=== PATIENT | female | born 1970 | race African-American/Black ===

== ENCOUNTER 2016-10-18 16:19 | Emergency (ER) | payer MEDICAID ==
[~2016-10-18] VITALS: Ht 167.6 cm; Wt 162.0 kg
[~2016-10-18 16:19] MED LIST: HCTZ PO; LISINOPRIL PO; VICODIN; WARF5TAB76 PO
[2016-10-18] MEDS ORDERED: ONDANSETRON HCL 4MG/2ML VIAL IV STA (17:31)
[2016-10-18] MEDS ORDERED: SODIUM CHLORIDE 0.9% 1,000 ML IV ONE (17:31)
[2016-10-18 18:23] LABS: BASOPHILS % 0.3 % (0.0-2.0); HEMOGLOBIN. 13.5 g/dL (12.0-16.0); LYMPHOCYTES % 12.5 % (20.0-50.0); MEAN CORPUSCULAR HEMOGLOBIN 27.6 pg (28.0-32.0); MEAN CORPUSCULAR VOLUME 81.7 fL (81.0-99.0); MEAN PLATELET VOLUME 8.3 fl (7.4-10.4); MONOCYTES % 3.2 % (2.0-8.0); PLATELET 180 x1000/uL (130-400); RED CELL DISTRIBUTION WIDTH 17.6 % (11.6-14.6)
[2016-10-18 18:27] LABS: CLARITY URINE TURBID (CLEAR); COLOR URINE YELLOW (YELLOW); GLUCOSE URINE NEGATIVE (NEGATIVE); KETONES URINE NEGATIVE (NEGATIVE); LEUKOCYTE ESTERASE URINE 3+ (NEGATIVE); NITRITE URINE NEGATIVE (NEGATIVE); OCCULT BLOOD URINE 3+ (NEGATIVE); PROTEIN URINE 2+ (NEGATIVE); SPECIFIC GRAVITY URINE 1.013 (1.005-1.030); UROBILINOGEN URINE 0.2 E.U./dL (0.2-1.0)
[2016-10-18 18:38] LABS: CARBON DIOXIDE 32 mEq/L (21-32); CHLORIDE 101 mEq/L (98-107)
[2016-10-18 18:54] LABS: *AMPHETAMINES SCREEN URINE NEGATIVE (NEGATIVE); *BARBITURATES SCREEN URINE NEGATIVE (NEGATIVE); *BENZODIAZEPINES SCREEN URINE NEGATIVE (NEGATIVE); *COCAINE SCREEN URINE NEGATIVE (NEGATIVE); METHADONE URINE SCREEN NEGATIVE (NEGATIVE); OPIATES URINE SCREEN NEGATIVE (NEGATIVE); PHENCYCLIDINE URINE SCREEN NEGATIVE (NEGATIVE)
[2016-10-18 18:56] LABS: CANNABINOID URINE SCREEN PRESUMTIVE POSITIVE (NEGATIVE)
[2016-10-18] MEDS ORDERED: KETOROLAC 30MG/ML VIAL IV ONE (19:30)
[2016-10-18] MEDS ORDERED: TRAMADOL 50MG TABLET PO ONE (19:30)
[2016-10-18] MEDS ORDERED: LEVOFLOXACIN 750MG PREMIX 150 ML IV ONE (19:45)
[2016-10-18 21:37] VITALS: BP 147/83
== END 2016-10-18 21:41 | disposition home or self-care (01) ==
LOC: ER 16:47
DX: K52.9 Noninfective gastroenteritis and colitis, unspecified (principal); N39.0 Urinary tract infection, site not specified; F12.10 Cannabis abuse, uncomplicated; I10 Essential (primary) hypertension; Z88.0 Allergy status to penicillin; Z79.01 Long term (current) use of anticoagulants
CPT/HCPCS: 36415; 80053; 80305; 81001; 83690; 85025; 96361; 96365; 96375; 99285; J1885; J1956; J2405; J7030; Z7610

== ENCOUNTER 2017-05-02 09:41 | Emergency (ER) | payer MEDICAID ==
[~2017-05-02] VITALS: Ht 167.6 cm; Wt 147.0 kg
[2017-05-02 10:54] VITALS: BP 115/67
== END 2017-05-02 13:27 | disposition home or self-care (01) ==
LOC: ER 10:15
DX: J02.9 Acute pharyngitis, unspecified (principal); F12.10 Cannabis abuse, uncomplicated; Z88.0 Allergy status to penicillin
CPT/HCPCS: 99283

== ENCOUNTER 2017-07-15 18:23 | Emergency (ER) | payer MEDICAID ==
[~2017-07-15] VITALS: Ht 162.6 cm; Wt 150.0 kg
[2017-07-15 19:04] LABS: CHLORIDE 93 mEq/L (98-107); INR 1.9; PROTHROMBIN TIME 20.4 sec (9.4-11.6)
[2017-07-15 19:05] LABS: BASOPHILS % 0.4 % (0.0-2.0); EOSINOPHILS % 0.2 % (0.0-5.0); HEMATOCRIT. 47.7 % (36.0-48.0); HEMOGLOBIN. 16.3 g/dL (12.0-16.0); LYMPHOCYTES % 20.2 % (20.0-50.0); MEAN CORPUSCULAR HEMOGLOBIN 28.2 pg (28.0-32.0); MEAN CORPUSCULAR VOLUME 82.4 fL (81.0-99.0); MONOCYTES % 6.4 % (2.0-8.0); NEUTROPHILS % 72.8 % (40.0-76.0); PLATELET 245 x1000/uL (130-400); RED BLOOD CELL COUNT 5.79 mill/uL (4.2-5.4); RED CELL DISTRIBUTION WIDTH 17.1 % (11.6-14.6)
[2017-07-15] MEDS ORDERED: METOCLOPRAMIDE HCL 10MG/2ML VIAL IV STA (23:23)
[2017-07-15] MEDS ORDERED: MORPHINE SULFATE 4 MG/ML CPJ (NOT FOR IM USE) IV STA (23:23)
[2017-07-15] MEDS ORDERED: SODIUM CHLORIDE 0.9% 1,000 ML IV ONE (23:23)
[2017-07-16] MEDS ORDERED: POTASSIUM CHLORIDE 20MEQ TABLET SR PO ONE (01:00)
[2017-07-16 04:30] VITALS: BP 157/88
== END 2017-07-16 04:58 | disposition home or self-care (01) ==
LOC: ER 18:23
DX: E87.6 Hypokalemia (principal); M32.9 Systemic lupus erythematosus, unspecified; R11.2 Nausea with vomiting, unspecified; R06.02 Shortness of breath; I10 Essential (primary) hypertension; Z88.0 Allergy status to penicillin; Z79.01 Long term (current) use of anticoagulants
CPT/HCPCS: 36415; 71045; 80053; 83690; 83880; 84484; 85025; 85610; 93005; 96361; 96374; 96375; 99285; J2270; J2765; J7030; Z7610

== ENCOUNTER 2017-12-24 10:28 | Emergency (ER) | payer MEDICAID ==
[~2017-12-24] VITALS: Ht 170.2 cm; Wt 147.0 kg
[2017-12-24] MEDS ORDERED: WARF10TA44 PO (10:39)
[2017-12-24] MEDS ORDERED: ACETAMINOPHEN 325MG TABLET PO ONE (11:00)
[2017-12-24 11:53] LABS: BASOPHILS % 0.1 % (0.0-2.0); EOSINOPHILS % 0.2 % (0.0-5.0); HEMATOCRIT. 42.7 % (36.0-48.0); HEMOGLOBIN. 14.3 g/dL (12.0-16.0); LYMPHOCYTES % 43.6 % (20.0-50.0); MEAN CORPUSCULAR HEMOGLOBIN 28.1 pg (28.0-32.0); MEAN CORPUSCULAR VOLUME 84.1 fL (81.0-99.0); MEAN PLATELET VOLUME 8.9 fl (7.4-10.4); MONOCYTES % 7.5 % (2.0-8.0); NEUTROPHILS % 48.6 % (40.0-76.0); PLATELET 196 x1000/uL (130-400); RED BLOOD CELL COUNT 5.08 mill/uL (4.2-5.4); RED CELL DISTRIBUTION WIDTH 17.5 % (11.6-14.6)
[2017-12-24 11:56] LABS: HCG SCREEN NEGATIVE
[2017-12-24 12:00] LABS: CHLORIDE 101 mEq/L (98-107)
[2017-12-24 12:09] LABS: D-DIMER 0.26 mg/L FEU (<0.50); INR 1.6; PROTHROMBIN TIME 15.8 sec (9.1-11.1)
[2017-12-24] MEDS ORDERED: POTASSIUM CHLORIDE 20MEQ TABLET SR PO ONE (12:30)
[2017-12-24] MEDS ORDERED: IOHEXOL-350 100 ML BOTTLE ONE (14:31)
[2017-12-24 16:06] VITALS: BP 155/78
== END 2017-12-24 16:07 | disposition home or self-care (01) ==
LOC: ER 12:37
DX: R07.89 Other chest pain (principal); I10 Essential (primary) hypertension; K21.9 Gastro-esophageal reflux disease without esophagitis; E87.6 Hypokalemia; F12.10 Cannabis abuse, uncomplicated; Z88.0 Allergy status to penicillin; Z86.711 Personal history of pulmonary embolism; Z79.01 Long term (current) use of anticoagulants; Z87.11 Personal history of peptic ulcer disease
CPT/HCPCS: 36415; 71045; 71275; 80053; 84484; 84703; 85025; 85379; 85610; 93005; 93970; 99285; Q9967; Z7610

== ENCOUNTER 2018-09-04 12:24 | Emergency (ER) | payer MEDICAID ==
[~2018-09-04] VITALS: Ht 170.2 cm; Wt 150.0 kg
[~2018-09-04 12:24] MED LIST changes: +WARF10TA44 PO
[2018-09-04] MEDS ORDERED: IBUPROFEN 600MG TABLET PO ONE (13:15)
[2018-09-04] MEDS ORDERED: ACETAMINOPHEN 325MG TABLET PO ONE (13:30)
[2018-09-04] MEDS ORDERED: ACETAMINOPHEN 325MG TABLET ONE (13:33)
[2018-09-04 13:34] VITALS: BP 129/81
== END 2018-09-04 13:34 | disposition home or self-care (01) ==
LOC: ER 12:24
DX: S30.811A Abrasion of abdominal wall, initial encounter (principal); R10.31 Right lower quadrant pain; I10 Essential (primary) hypertension; K21.9 Gastro-esophageal reflux disease without esophagitis; F12.10 Cannabis abuse, uncomplicated; E66.01 Morbid (severe) obesity due to excess calories; Z86.711 Personal history of pulmonary embolism; Z88.0 Allergy status to penicillin; Z79.01 Long term (current) use of anticoagulants; Z68.43 Body mass index [BMI] 50.0-59.9, adult; X58.XXXA Exposure to other specified factors, initial encounter; Y93.89 Activity, other specified; Y92.018 Other place in single-family (private) house as the place of occurrence of the external cause
CPT/HCPCS: 99283

== ENCOUNTER 2020-06-15 10:53 | Emergency (ER) | payer MEDICAID ==
[~2020-06-15] VITALS: Ht 167.6 cm; Wt 154.0 kg
[2020-06-15 13:46] LABS: BASOPHILS % 1.1 % (0.0-2.0); EOSINOPHILS % 0.6 % (0.0-5.0); HEMATOCRIT. 41.4 % (36.0-48.0); HEMOGLOBIN. 13.7 g/dL (12.0-16.0); LYMPHOCYTES % 32.6 % (20.0-50.0); MEAN CORPUSCULAR VOLUME 81.5 fL (81.0-99.0); MEAN PLATELET VOLUME 8.2 fl (7.4-10.4); MONOCYTES % 5.9 % (2.0-8.0); NEUTROPHILS % 59.8 % (40.0-76.0); PLATELET 239 x1000/uL (130-400); RED BLOOD CELL COUNT 5.09 mill/uL (4.2-5.4); RED CELL DISTRIBUTION WIDTH 17.1 % (11.6-14.6)
[2020-06-15 13:56] LABS: INR 2.8; PARTIAL THROMBOPLASTIN TIME 43.6 sec (23.4-31.0); PROTHROMBIN TIME 27.7 sec (9.6-11.0)
[2020-06-15 14:25] VITALS: BP 150/90
== END 2020-06-15 15:06 | disposition home or self-care (01) ==
LOC: ER 10:53
DX: R04.0 Epistaxis (principal); K21.9 Gastro-esophageal reflux disease without esophagitis; I10 Essential (primary) hypertension; F12.10 Cannabis abuse, uncomplicated; Z79.899 Other long term (current) drug therapy; Z59.0 Homelessness; Z88.0 Allergy status to penicillin
CPT/HCPCS: 36415; 85025; 99283

== ENCOUNTER 2020-09-20 14:57 | Emergency (ER) | payer MEDICAID ==
[~2020-09-20] VITALS: Ht 170.2 cm; Wt 125.0 kg
[2020-09-20 15:06] VITALS: BP 133/77
[2020-09-20 16:51] LABS: BASOPHILS % 0.5 % (0.0-2.0); EOSINOPHILS % 0.6 % (0.0-5.0); HEMATOCRIT. 38.6 % (36.0-48.0); HEMOGLOBIN. 12.9 g/dL (12.0-16.0); LYMPHOCYTES % 30.9 % (20.0-50.0); MEAN CORPUSCULAR VOLUME 80.7 fL (81.0-99.0); MEAN PLATELET VOLUME 8.5 fl (7.4-10.4); MONOCYTES % 6.2 % (2.0-8.0); NEUTROPHILS % 61.8 % (40.0-76.0); PLATELET 232 x1000/uL (130-400); RED BLOOD CELL COUNT 4.78 mill/uL (4.2-5.4); RED CELL DISTRIBUTION WIDTH 16.5 % (11.6-14.6)
[2020-09-20 16:57] LABS: CHLORIDE 105 mEq/L (98-107)
[2020-09-20 17:11] LABS: HCG SCREEN NEGATIVE
== END 2020-09-20 18:59 | disposition home or self-care (01) ==
LOC: ER 14:57
DX: R07.89 Other chest pain (principal); R22.2 Localized swelling, mass and lump, trunk; R22.42 Localized swelling, mass and lump, left lower limb; K21.9 Gastro-esophageal reflux disease without esophagitis; I10 Essential (primary) hypertension; Z86.711 Personal history of pulmonary embolism; Z79.01 Long term (current) use of anticoagulants; Z88.0 Allergy status to penicillin
CPT/HCPCS: 36415; 71045; 80048; 80076; 84484; 84703; 85025; 85379; 99284